=== PATIENT | male | born 1980 | race Two or more races ===

== ENCOUNTER 2018-05-20 14:06 | Emergency (ER) | payer MEDICAID, OTHER ==
[~2018-05-20] VITALS: Ht 172.7 cm; Wt 79.4 kg
[2018-05-20 14:15] VITALS: BP 133/92
== END 2018-05-20 15:30 | disposition home or self-care (01) ==
LOC: ER 14:19
DX: S61.411A Laceration without foreign body of right hand, initial encounter (principal); W22.8XXA Striking against or struck by other objects, initial encounter; Y93.89 Activity, other specified; Y99.8 Other external cause status; Y92.89 Other specified places as the place of occurrence of the external cause
CPT/HCPCS: 12002

== ENCOUNTER 2024-04-23 12:36 | Emergency (ER) | payer MEDICAID, SELFPAY ==
[~2024-04-23] VITALS: Ht 172.7 cm; Wt 83.9 kg
--- NOTE | 2024-04-23 12:50 | ED.PDOC ---
HPI (NEURO) HPI Comments 44Y M with PMHx prediabetes presents to ED for chief complaint headache x3days with lightheadedness. Pt states headache starts at frontal region but then radiates all around his head. Headache is described as pressure. Per pt, he gets headaches every 2 months and this has been happening since he was a child. Pt states he became lightheaded after his shower this morning and felt that he was going to faint. Pt had never experienced the lightheadedness with the headache before. Pt denies vision changes, chest pain, SOB, and photophobia. Pt states stress can be a trigger for the headaches and he currently feels mild stress. Pt has not seen a PCP for his headaches. No other symptoms or history reported. Time Seen by MD: 12:40 Primary Care Provider: Carlosies Reviewed Notes: Nurses Notes, Medications, Allergies Information Source: Patient Mode of Arrival: Ambulatory Severity: Mild Dizziness/Weakness Severity: Does not affect activitie Headache Severity: Mild, Like previous Headaches Timing: Days Duration: Intermittent Headache Quality: Other (pressure) Headache Location: Frontal Onset: At rest Circumstances: Recent stress Symptoms: Near syncope History of: None Modifying factors: Nothing Associated Signs and Symptoms: Other Past Medical History Past Medical History (Other): prediabetes Surgical History: Denies all surgeries Family History Family History: Unknown Social History Smoker: Non-Smoker Alcohol: Denies ETOH Use Drugs: Denies Drug Use Lives In: Home Constitutional: denies: chills, diaphoresis, fatigue, fever, malaise, sweats, weakness, others EENTM: denies: blurred vision, double vision, ear bleeding, ear discharge, ear drainage, ear pain, ear ringing, eye pain, eye redness, hearing loss, mouth pain, mouth swelling, nasal discharge, nose bleeding, nose congestion, nose pain, photophobia, tearing, throat pain, throat swelling, voice changes, others Respiratory: denies: cough, hemoptysis, orthopnea, SOB at rest, shortness of breath, SOB with excertion, stridor, wheezing, others Cardiovascular: reports: lightheadedness; denies: chest pain, dizzy spells, diaphoresis, Dyspnea on exertion, edema, irregular heart beat, left arm pain, palpitations, PND, syncope, others Gastrointestinal: denies: abdomen distended, abdominal pain, blood streaked bowels, constipated, diarrhea, dysphagia, difficulty swallowing, hematemesis, melena, nausea, poor appetite, poor fluid intake, rectal bleeding, rectal pain, vomiting, others Genitourinary: denies: burning, dysuria, flank pain, frequency, hematuria, incontinence, penile discharge, penile sore, pain, testicle pain, testicle swelling, urgency, others Neurological: reports: headache; denies: dizziness, fainting, left sided numbness, left sided weakness, numbness, paresthesia, pre-existing deficit, right sided numbness, right sided weakness, seizure, speech problems, tingling, tremors, weakness, others Musculoskeletal: denies: back pain, gout, joint pain, joint swelling, muscle pain, muscle stiffness, neck pain, others Integumetry: denies: bruises, change in color, change in hair/nails, dryness, laceration, lesions, lumps, rash, wounds, others Allergic/Immunocompromised: denies: Difficulty Healing, Frequent Infections, Hives, Itching, others Hematologic/Lymphatic: denies: anemia, blood clots, easy bleeding, easy bruising, swollen glands, others Endocrine: denies: excessive hunger, excessive sweating, excessive thirst, excessive urination, flushing, intolerance to cold, intolerance to heat, unexplained weight gain, unexplained weight loss, others Psychiatric: reports: others (stress); denies: anxiety, bipolar disorder, depression, hopeless, panic disorder, schizophrenia, sleepless, suicidal All Other Systems: Reviewed and Negative Physical Exam General Appearance: No Apparent Distress, Normal HEENT: Normal ENT Inspection, Pharynx Normal, TMs Normal Neck: Full Range of Motion, Non-Tender, Normal, Normal Inspection Respiratory: Chest Non-Tender, Lungs Clear, No Accessory Muscle Use, No Respiratory Distress, Normal Breath Sounds Cardiovascular: No Edema, No JVD, No Murmur, No Gallop, Normal Peripheral Pulses, Regular Rate/Rhythm Breast Exam: Deferred Gastrointestinal: No Organomegaly, Non Tender, No Pulsatile Mass, Normal Bowel Sounds, Soft Genitalia: Deferred Pelvic: Deferred Rectal: Deferred Extremities: No calf tenderness, Normal capillary refill, Normal inspection, Normal range of motion, Non-tender, No pedal edema Musculoskeletal : Apperance: Normal Neurologic: Alert, community representative II-XII nml as Tested, No Motor Deficits, Normal Affect, Normal Mood, No Sensory Deficits Cerebellar Function: Normal Reflexes: Normal Skin: Dry, Normal Color, Warm Lymphatic: No Adenopathy Was a procedure done? Was a procedure done?: No Differential Diagnosis (SZ) Seizure: N/A Headache: Cluster, Migraine, Closed Head Injury, CVA, Epidural Hemorrhage, Intracerebral Hemorrhage, Subarachnoid Hemorrhage, Subdural Hemorrhage, Mass Lesion, Meningitis, Sinusitis, Trigeminal Neuralgia X-Ray, Labs, Meds, VS Vital Signs Date Time Temp Pulse Resp B/P (MAP) Pulse Ox O2 Delivery O2 Flow Rate FiO2 04/23/24 13:18 98.3 82 19 143/102 (116) 95 98.3 04/23/24 13:18 82 19 95 Room Air 04/23/24 12:46 98.6 79 16 152/86 (108) 99 04/23/24 12:46 77 Lab Test 04/23/24 12:43 Range/Units POC Glucose 138 H 70-106 mg/dl Current Medications Medications (Trade) Dose Ordered Sig/Kev Route Start Time Stop Time Status Last Admin Ketorolac Tromethamine (Toradol Injection) 15 mg ONCE ONCE IM 04/23/24 12:45 04/23/24 12:57 DC 04/23/24 13:10 [place] [id number] Ph: [phone] DIAGNOSTIC IMAGING Diagnostic Imaging Report : [id number] Signed PATIENT: JESSENIA ISABEL ACCT: [id number] UNIT: [id number] : 1980 LOC: ER ROOM / BED: / AGE / SEX: 44 / M ADM STATUS: REG ER SERVICE [id number] ORDERING PHYSICIAN: SUSANA BRANNON MD PROCEDURE(s): HWOCT - HEAD WITHOUT CONTRAST REASON: worsening headache ORDER NUMBER(s): [id number], ACCESSION NUMBER(s): [id number] Exam: CT HEAD WITHOUT CONTRAST History: worsening headache Technique: [address] images through the posterior fossa and the supratentorial compartment were acquired without contrast and imaged using soft tissue and bone algorithms. RADIATION DOSE: DLP 856.53 mGy.cm; CTDI vol 53.43 mGy. Comparison: None Findings: There is no evidence of an intracranial hemorrhage, acute large vessel infarct, mass effect, or midline shift. The calvarium, orbits, paranasal sinuses, sella, middle ears, and mastoids are unremarkable. The superficial soft tissues are within normal limits. Impression: 1. No acute intracranial abnormality. ATED BY: CELIA RIVAS DO DICTATED DATE/TIME: 04/23/241310 SIGNED BY: CELIA RIVAS DO SIGNED DATE/TIME: 04/23/241310 CC: Time of 1ST Reevaluation: 13:10 Reevaluation 1ST: Unchanged Time of 2ND Reevaluation: 14:38 Reevaluation 2ND: Resolved Patient Education/Counseling: Diagnosis, Treatment, Prognosis, Need For Follow Up Family Education/Counseling: No Family Present Additional Information I reviewed the following notes from patient's past medical encounters: [facility] ER 05/20/2018 The following tests were ordered, and results were reviewed by me: CT head WO contrast Additional Information was gathered from interviewing the following independent historians: None I reviewed and agreed with the following test results read by other providers: CT head WO contrast I discussed treatment and results with medical personnel. although pt has a history of episodic headaches, this episode was accompanied by a lightheaded sensation and concerned him enough to come to the Er, where as previously, he never saw a doctor for it. intracranial bleed, mass, and other serious conditions are considered and ruled out. pt's symptoms resolved. a serious condition is not found, but i advised that he follows up with his PCP for a neurology referral Departure 1 Departure Time of Disposition: 14:38 Impression: Primary Impression: Headache Qualified Codes: R51.9 - Headache, unspecified Disposition: 01 HOME / SELF CARE / HOMELESS Condition: Good e-Prescriptions Hydrocodone-Acetaminophen (Hydrocodone Bitartrate/AC 5-325 mg) 1 Tab Tab 1 TAB PO Q12HP PRN for 2 Days, #4 TAB Prov: SUSANA BRANNON MD 04/23/24 Discharged With: Self Critical Care Note Critical Care Time?: Yes (55 min-critical care time only) Critical care comment: Due to concerns for patients condition deteriorating, the care required my highest level of attention and readiness to intervene. I assessed the patient, reviewed the medical records, ordered the appropriate tests and treatments, then reassessed for results and responsiveness. I communicated with medical personnel and consultants and formulated a plan of care. Total critical care time excludes any procedures Stability Stability form required: No Heart Score Heart Score: Heart Score Response (Comments) Value History N/A 0 EKG N/A 0 Age N/A 0 Risk Factors N/A 0 Troponin N/A 0 Total 0 I personally scribed for SUSANA BRANNON MD ([email or web address]) on 04/23/24 at 12:50. Electronically submitted by Rebeca Loera ([email or web address]). I personally scribed for SUSANA BRANNON MD ([email or web address]) on 04/23/24 at 13:16. Electronically submitted by Rebeca Loera ([email or web address]). SUSANA BRANNON MD Apr 23, 2024 12:50
--- NOTE | 2024-04-23 12:51 | ECG ---
[facility] Test Date: 2024-04-23 Test Time: 12:46:42 Pat Name: JESSENIA ISABEL Department: ER Room: Gender: M [employer] Potter: MARITZA : 1980 Requested By: SUSANA BRANNON Order Number: [id number] Reading MD: Jovanny Iniguez Measurements Intervals [place] Rate: 77 P: 48 MI: 132 QRS: 20 QRSD: 91 T: 36 QT: 362 QTc: 410 Interpretive Statements Sinus rhythm Electronically Signed On 04-24-2024 16:08:13 PST by Jovanny Iniguez Please click the below link to view image of tracing.
[2024-04-23] MEDS: KETOROLAC TROMETH 30 MG/ML 1ML VIAL IM ONE (13:10)
--- NOTE | 2024-04-23 13:13 | DVH ---
Exam: CT HEAD WITHOUT CONTRAST History: worsening headache Technique: [address] images through the posterior fossa and the supratentorial compart ment were acquired without contrast and imaged using soft tissue and bone algorithms. RADIATION DOSE: DLP 856.53 mGy.cm; CTDI vol 53.43 mGy. Comparison: None Findings: There is no evidence of an intracranial hemorrhage, acute large vessel infarct, mass effect, or midli ne shift. The calvarium, orbits, paranasal sinuses, sella, middle ears, and mastoids are unremarkable. The superficial soft tissues are within normal limits. Impression: 1. No acute intracranial abnormality.
[2024-04-23] MEDS ORDERED: HYDR-4902 PO (14:40)
[2024-04-23 14:51] VITALS: BP 142/89; PULSE 62; RESP 17; TEMP 98.2; O2SAT 98
== END 2024-04-23 14:52 | disposition home or self-care (01) ==
LOC: ER 12:36
DX: R51.9 Headache, unspecified (principal); R73.03 Prediabetes; R42 Dizziness and giddiness; V86.56XA Driver of dirt bike or motor/cross bike injured in nontraffic accident, initial encounter; Y93.55 Activity, bike riding
CPT/HCPCS: 70450; 82947; 82962; 93005; 96372; 99285; J1885